=== PATIENT | female | born 1950 | race Caucasian/White ===

== ENCOUNTER 2024-01-12 14:12 | Emergency (ER) | payer MEDICARE ==
[~2024-01-12 14:12] MED LIST: Iopamidol 370 76% 100 ML VIAL ONE
[2024-01-12] MEDS ORDERED: Sodium Chloride 0.9% 1,000 ML ONE (15:14)
[2024-01-12] MEDS ORDERED: Meclizine HCl 25 MG TAB ONE (15:14)
[2024-01-12 15:53] LABS: #Basophils 0.1 thou/uL (0.0-0.2); #Eosinphils 0.1 thou/uL (0.0-0.7); #Lymphocytes 0.6 thou/uL (1.20-3.40); #Monocytes 0.6 thou/uL (0.11-0.59); %Basophils 1.2 % (0.0-1.0); %Eosinophils 2.7 % (0.0-10.0); %Lymphocytes 11.6 % (21.0-51.0); %Neutrophils 73.6 % (42.0-75.0); Hematocrit 46.4 % (36.0-47.0); Hemoglobin 14.7 g/dL (12.0-16.0); Mean Corpuscular HGB CONC 31.7 g/dL (32.0-36.0); Mean Corpuscular Hemoglobin 29.3 pg (27.0-31.0); Mean Corpuscular Volume 92.6 fl (78.0-98.0); Mean Platelet Volume 8.9 fL (7.4-10.4); Platelet Count 187 10x3/uL (130-400); RBC Distribution Width 12.2 % (11.5-14.5); Red Blood Cell (RBC) Count 5.01 mill/uL (4.20-5.40); White Blood Cell (WBC) Count 5.4 10x3/uL (4.8-10.8)
[2024-01-12 16:02] LABS: INR-International Normal Ratio 1.1; PTT 37.4 sec (22.9-36.1); Prothrombin Time 14.1 sec (12.0-14.7)
[2024-01-12] MEDS ORDERED: Acetaminophen 500 MG TAB ONE (16:05)
[2024-01-12 16:06] LABS: ALT (SGPT) 22 U/L (8-55); AST (SGOT) 24 U/L (5-34); Albumin 3.7 g/dL (3.4-4.8); Alkaline Phosphatase 44 U/L (40-110); Anion Gap 15 mmol/L (10-20); BUN (Urea Nitrogen) 13 mg/dL (9.8-20.1); Bilirubin, Total 0.4 mg/dL (0.2-1.2); Calc. Creatinine Clearance 0 mL/min (70-130); Calcium 9.3 mg/dL (7.8-10.44); Carbon Dioxide 22 mmol/L (23-31); Chloride 110 mmol/L (98-107); Estimated GFR 76; Globulin 2.5 g/dL (2.4-3.5); Glucose 88 mg/dL (83-110); Potassium 3.8 mmol/L (3.5-5.1); Protein, Total 6.2 g/dL (5.8-8.1); Sodium 143 mmol/L (136-145)
[2024-01-12 16:07] LABS: Troponin I Less than 0.010 ng/mL (< 0.028)
[2024-01-12 17:04] LABS: Bilirubin Negative (Negative); Blood, Urine Trace (Negative); Clarity Clear (Clear); Glucose, Urine (Dipstick) Negative (Negative); Ketone, Urine Negative (Negative); Leukocyte Small (Negative); Nitrite Negative (Negative); Protein, Urine (Dipstick) Negative (Neg-Trace); Specific Gravity, Urine 1.015 (1.005-1.030); Urobilinogen 0.2 mg/dL (Less than 2); pH, Urine 7.5 (5.0-9.0)
[2024-01-12 17:13] LABS: Bacteria/HPF Rare-Few HPF (None Seen); RBC/HPF 0-3 HPF (0-3); Squamous Epithelial 0-3 HPF (0-3); WBC/HPF 0-3 HPF (0-3)
== END 2024-01-12 19:25 | disposition short-term general hospital (02) ==
LOC: NAV ERS 14:12
DX: R42 Dizziness and giddiness (principal); R29.704 NIHSS score 4; E03.9 Hypothyroidism, unspecified; K21.9 Gastro-esophageal reflux disease without esophagitis; Z79.899 Other long term (current) drug therapy
CPT/HCPCS: 70450; 70496; 70498; 80053; 81003; 81015; 84484; 85025; 85610; 85730; 93005; 96360; 96361; J7050; Q9967

== ENCOUNTER 2024-06-12 16:04 | Emergency (ER) | payer MEDICARE ==
[2024-06-12] MEDS ORDERED: Sodium Chloride 0.9% 100 ML ONE (16:32)
[2024-06-12] MEDS ORDERED: diphenhydrAMINE 50 MG/ML VIAL ONE (16:32)
[2024-06-12] MEDS ORDERED: Metoclopramide HCl 10 MG (2 mL) VIAL ONE (16:32)
[2024-06-12] MEDS ORDERED: Sodium Chloride 0.9% 1,000 ML ONE (16:32)
[2024-06-12 16:50] LABS: #Eosinophils 0.1 thou/uL (0.0-0.7); #Lymphocytes 0.5 thou/uL (1.20-3.40); #Monocytes 0.5 thou/uL (0.11-0.59); %Basophils 0.5 % (0.0-1.0); %Lymphocytes 10.6 % (21.0-51.0); %Monocytes 8.8 % (0.0-10.0); %Neutrophils 79.1 % (42.0-75.0); Hematocrit 44.4 % (36.0-47.0); Hemoglobin 14.5 g/dL (12.0-16.0); Mean Corpuscular HGB CONC 32.8 g/dL (32.0-36.0); Mean Corpuscular Hemoglobin 29.3 pg (27.0-31.0); Mean Corpuscular Volume 89.3 fl (78.0-98.0); Mean Platelet Volume 9.3 fL (7.4-10.4); Platelet Count 221 10x3/uL (130-400); RBC Distribution Width 12.2 % (11.5-14.5); Red Blood Cell (RBC) Count 4.97 mill/uL (4.20-5.40); White Blood Cell (WBC) Count 5.1 10x3/uL (4.8-10.8)
[2024-06-12 17:06] LABS: ALT (SGPT) 18 U/L (8-55); AST (SGOT) 20 U/L (5-34); Albumin 3.8 g/dL (3.4-4.8); Alkaline Phosphatase 48 U/L (40-110); Anion Gap 15 mmol/L (10-20); BUN (Urea Nitrogen) 14 mg/dL (9.8-20.1); Bilirubin, Total 0.7 mg/dL (0.2-1.2); Calc. Creatinine Clearance 0 mL/min (70-130); Calcium 9.2 mg/dL (7.8-10.44); Carbon Dioxide 19 mmol/L (23-31); Chloride 110 mmol/L (98-107); Estimated GFR 67; Globulin 2.3 g/dL (2.4-3.5); Glucose 101 mg/dL (83-110); Lipase 51 U/L (8-78); Potassium 3.7 mmol/L (3.5-5.1); Protein, Total 6.1 g/dL (5.8-8.1); Sodium 140 mmol/L (136-145)
[2024-06-12 17:12] LABS: Troponin I Less than 0.010 ng/mL (< 0.028)
[2024-06-12] MEDS ORDERED: Meclizine HCl 25 MG TAB ONE (17:23)
== END 2024-06-12 18:28 | disposition home or self-care (01) ==
LOC: NAV ERS 16:04
DX: R42 Dizziness and giddiness (principal); R29.700 NIHSS score 0; E03.9 Hypothyroidism, unspecified; K21.9 Gastro-esophageal reflux disease without esophagitis; Z79.890 Hormone replacement therapy
CPT/HCPCS: 70450; 80053; 83690; 84484; 85025; 93005; 96365; 96375; J1200; J2765; J7030